=== PATIENT | male | born 1995 | race Caucasian/White ===

== ENCOUNTER 2024-12-01 20:01 | Emergency (ER) | payer MEDICAID, SELFPAY ==
--- OUTSIDE RECORDS SUMMARY | 2024-12-01 20:03 | XMS_ITS | Clinical Summary ---
Author Organization [place] Address [address] [place] [address] Care Team Providers Care Career Guidance Counselor Name Role Phone Leandra Montilla PA-C Primary Care Provid er Allergies No known active allergies Medications No known medications Active Problems Problem Noted Date Diagnosed Date ACP (advance care planning) 09/26/2015 Overview (09/26/2015): Advance Care Planning 09/26/2015: ACP Review of Chart / Resources Provided: Reviewed chart for advance care plan. Lilly Levin has no plan or code status on file. Discussed available resources and provided with information. Confirmed code status reflects current choices pending further ACP discussions. Confrimed/documented legally designated decision makers. Added by Dyana Santiago Other acne 12/20/2011 Allergic rhinitis 06/27/2009 Overview (05/19/2015): Problem list name updated by automated process. Provider to review Resolved Problems Problem Noted Date Diagnosed Date Resolved Date Health [facility] 09/26/2015 02/02/2024 Infectious mononucleosis 02/13/2012 Concussion syndrome 10/25/2010 12/20/19 12 Exercise-induced asthma 06/27/2009 08/09/2009 Overview (05/19/2015): Problem list name updated by automated process. Provider to review NO ACTIVE PROBLEMS 03/10/2008 9 Immunizations Name Administration Dates Next Due DTAP (<7y) 07/14/2000,03/06/1998,07/13/1996 HIB (PRP-T) 07/13/1996, 6,1995,06/13 HepB 03/01/1996,1995,1995 Hepatitis A (Vaqta/Havrix)(P eds 12m-18y) 12/20/2009 Hepatitis B, Peds (Engerix-B/Recombivax HB) 03/01/1996,1995,1995 Historic Hib Hib-titer 07/13/1996 Historical DTP/aP 1995,1995,06/13/19 95 MMR (MMRII) 07/14/2000, 8,07/13/1996,10/19 Meningococcal ACWY (Menactra ) 02/09/2014,12/20/2009 Meningococcal ACWY (Menveo ) 02/09/2014 OPV, trivalent, live 03/06/1998,10/19/18 96,1995,06/13 Pneumococcal (PCV 7) 07/14/2000 Poliovirus, inactivated (IPV) 07/14/2000 TDAP Vaccine (Adacel) 04/13/2008 TRIHIBIT (DTAP/HIB, <7y) 1995,1995,1 Td (Adult), Adsorbed 02/09/2017 Tdap (Adult) Unspecified Formulation 12/20/2009 Varicella (Varivax) 04/13/2008,03/06/1998,1995 Family History Medical History Relation Comments Hypertension Maternal Grandfather Breast Cancer Mother C.A.D. 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 Gender Identity Not on file Sexual Orientation Not on file Occupation Industry Job Start Date Job End Date student Not on file Not on file Not on file Last Filed Vital Signs Vital Sign Reading Time Taken Comments Blood Pressure 110/63 05/07/2022 11:02 AM CDT Pulse 64 05/07/2022 11:02 AM CDT Temperature 36.7 C (98 F) 05/07/2022 11:02 AM CDT Respiratory Rate 22 07/04/2020 3:35 PM 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 Oxygen Saturation 100% 05/07/2022 11:02 AM CDT Inhaled Oxygen Concentration - - Weight 61.2 kg (135 lb) 05/07/2022 11:02 AM CDT Height 179.1 cm (5' 10.5) 07/11/2020 11:[address] Body Mass Index 19.1 07/11/2020 11:23 AM 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 Plan of Treatment Health Maintenance Due Date Last Done Comments ADVANCE CARE PLANNING 1995 ANNUAL REVIEW OF HM ORDERS 1995 HIV SCREENING 2010 YEARLY PREVENTIVE VISIT 03/19/2011 03/19/2010, 03/10 HEPATITIS C SCREENING 2013 COVID-19 Vaccine ( season) 2024 INFLUENZA VACCINE (#1) 2024 07/11/2020 (Declin ed) PHQ-2 (once per calendar year) 2024 07/11/2020, 07/11/2020 DTAP/TDAP/TD IMMUNIZATION (9 - Td or Tdap) 02/09/2027 02/09/2017, 12/20/2009, 12/20/2009, Additional history exists ZOSTER IMMUNIZATION (1 of 2) 2045 HEPATITIS B IMMUNIZATION Completed 996, 03/01/1996, 1995, Additional history exists Pneumococcal Vaccine: Pediatrics (0 to 5 Years) and At-Risk Patients (6 to 49 Years) Aged Out 07/14/2000 No longer eligible based on patient's age to complete this topic MENINGITIS IMMUNIZATION Completed 02/10/20 14, 02/09/2014, 12/20/2009 HPV IMMUNIZATION Aged Out No longer e ligible based on patient's age to complete this topic Insurance [facility] [employer] Member Subscriber Plan / Payer (Ef fective 2019-Present) Name:LILLY LEVIN Relation to Subscriber:Child Name:Durga Green Date of :1961 (Home) (Work) Address: [place] [address] Payer ID:[id number] (NAIC) Type:Textic[employer] Address: [address] [facility] [employer] [facility] [employer] Member Subscriber Plan / Payer (Ef fective 2019-Present) Name:LILLY LEVIN Relation to Subscriber:Child Name:Durga Green Date of :1961 (Home) (Work) Address: [place] [address] Payer ID:[id number] (NAIC) Type:TexticO Address: [place] [phone] [facility] [employer] OTHER Care Teams Career Guidance Counselor Relationship Specialty Start Date End Date Leandra Montilla PA-C [address], [address] [place], [place] [id number] PCP - General Family Medicine 07/10/20
[2024-12-01 20:08] VITALS: BP 145/90; PULSE 87; RESP 18; TEMP 36.7; O2SAT 97; BMI 18.5
--- NOTE | 2024-12-01 20:20 | ED_ITS ---
HPI - Nausea/Vomiting/Diarrhea General Chief complaint: Nausea/Vomiting Stated complaint: vomiting Time Seen by Provider: 12/01/24 20:10 History of Present Illness HPI Narrative: This 29-year-old male comes in reporting persistent vomiting over the past hour to. He states that he has had episodes like this 3 or 4 times in the past. He does use marijuana daily. Related Data Home Medications ?Medication ?Instructions ?Recorded ?Confirmed No Known Home Medications 12/01/24 12/01/24 Allergies Allergy/AdvReac Type Severity Reaction Status Date / Time No Known Drug Allergies Allergy Verified 12/01/24 20:08 Review of Systems Status of ROS: Reports: 10 or more systems reviewed and unremarkable except as noted in History and below Narrative: Constitutional: No fevers, no weight gain or loss. Eyes: No discharge. No vision changes. HENT: No congestion, no sore throat, no ear pain. Cardiovascular: No chest pain, no palpitations. Respiratory: No shortness of breath, no wheezes, no cough. Gastrointestinal: No diarrhea. Persistent vomiting with associated abdominal pain. Genitourinary: No dysuria, no hematuria. Musculoskeletal: Normal range of motion. Skin: No rashes, no pruritis. Neurological: No dizziness, weakness, sensory change, speech change. Endo/Heme/Allergies: No bruising or bleeding. No polydipsia. Pysch: no suicidality, no anxiety, no insomnia. All other systems reviewed and are negative. PFSH PFSH Social History Smoking Status: Never smoker How often do you have a drink containing alcohol: monthly or less AUDIT-C Alcohol total score: 1 Non-prescribed substance use: marijuana (any form) service: No Exam Const: Vital Signs, click to edit/add: Vital Signs - 24 hr 12/01/24 20:08 Temperature 98.0 F Pulse Rate [Right Pulse Oximeter] 87 Respiratory Rate 18 Blood Pressure [Ri ght Upper Arm] 145/90 H Pulse Oximetry 97 Oxygen Delivery Me thod Room Air Course Vital Signs Vital signs: Initial Vital Signs Temperature 98.0 F 12/01/24 20:08 Temperature Source Temporal Artery Scan 12/01/24 20:08 Pulse Rate 87 12/01/24 20:08 Respiratory Rate 18 12/01/24 20:08 Blood Pressure 145/90 H 12/01/24 20:08 Blood Pressure Mean 108 H 12/01/24 20:08 Blood Pressure Position Sitting 12/01/24 20:08 Pulse Oximetry 97 12/01/24 20:08 Oxygen Delivery Method Room Air 12/01/24 20:08 Vital Signs Temperature 98.0 F 12/01/24 20:08 Pulse Rate 87 12/01/24 20:08 Respiratory Rate 18 12/01/24 20:08 Blood Pressure 145/90 H 12/01/24 20:08 Pulse Oximetry 97 12/01/24 20:08 Oxygen Delivery Method Room Air 12/01/24 20:08 Temperature 98.0 F 12/01/24 20:08 Pulse Rate 87 12/01/24 20:08 Respiratory Rate 18 12/01/24 20:08 Blood Pressure 145/90 H 12/01/24 20:08 Pulse Oximetry 97 12/01/24 20:08 Oxygen Delivery Method Room Air 12/01/24 20:08 Medications Administered Medications: Discontinued Medications Generic Name Dose Route Start Last Admin Trade Name Freq PRN Reason Stop Dose Admin Haloperidol Lactate 5 mg 12/01/24 20:19 12/01/24 20:46 Haloperidol 5 Mg/Ml Inj IV 12/01/24 20:20 5 mg ONCE ONE Administration Sodium Chloride 1,000 mls @ 1,000 mls/hr 12/01/24 20:30 12/01/24 20:45 0.9 % Sodium Chloride 1000 Ml IV 12/01/24 21:29 1,000 mls/hr .Q1H MARY Administration Lorazepam 0.5 mg 12/01/24 20:58 12/01/24 21:06 Lorazepam 2 Mg/Ml Inj IV 12/01/24 20:59 0.5 mg ONCE ONE Administration Ondansetron HCl 4 mg 12/01/24 20:19 12/01/24 20:46 Ondansetron 2 Mg/Ml Inj IVP 12/01/24 20:20 4 mg ONCE ONE Administration MDM - Nausea/Vomiting/Diarrhea MDM Narrative Medical decision making narrative: This patient comes in with persistent vomiting related to cannabis. He arrives with normal vital signs. An IV was established and he received a L of normal saline along with Haldol 5 mg and Zofran 4 mg. He has not had any further vomiting but felt rather anxious so I did administer a 1 time dose of Ativan 0.5 mg. The patient is doing much better and is okay to be discharged home. Discharge Plan Discharge Clinical Impression: Vomiting Patient Disposition: Home w/ Parent or Adult Condition: Improved Additional Instructions: Avoid marijuana. Increase diet as tolerated. Follow up with MD return if worsening. Prescriptions: No Action No Known Home Medications Follow Up/Referrals: Provider,Not a Local [Primary Care Provider] - Stand Alone Forms: [employer] Info Instructions
[2024-12-01] MEDS: 0.9 % SODIUM CHLORIDE 1000 ml 1,000 ML IV (20:45)
[2024-12-01] MEDS: HALOPERIDOL 5 MG/ML INJ IV (20:46)
[2024-12-01] MEDS: ONDANSETRON 2 MG/ML inj 4 MG IVP (20:46)
--- OUTSIDE RECORDS SUMMARY | 2024-12-01 20:57 | XMS_ITS | Clinical Summary ---
Author Organization [place] Address [address] [facility] 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 Gender Identity Not on file Sexual Orientation [...] CDT Respiratory Rate 22 07/04/2020 3:35 PM REED CLEANER Oxygen Saturation 100% 05/07/2022 11:02 AM CDT Inhaled Oxygen Concentration - - Weight 61.2 kg (135 lb) 05/07/2022 11:02 AM CDT Height 179.1 cm (5' 10.5) 07/11/2020 11:[address] Body Mass Index 19.1 07/11/2020 11:23 AM REED CLEANER Plan of Treatment Health Maintenance Due Date [...] patient's age to complete this topic Insurance [facility] [employer] Member Subscriber Plan / Payer (Ef fective 2019-Present) Name:LILLY LEVIN Relation to Subscriber:Child Name:Durga Green Date of :1961 (Home) (Work) Address: [place] [address] Payer ID:[id number] (NAIC) Type:[employer] Address: [address] [facility] [employer] [facility] [employer] Member Subscriber Plan / Payer (Ef fective 2019-Present) Name:LILLY LEVIN Relation to Subscriber:Child Name:Durga Green Date of :1961 (Home) (Work) Address: [place] [address] Payer ID:[id number] (NAIC) Type:[employer] Address: [place] [phone] [facility] [employer] OTHER Care Teams Pediatric Dental Hygienist Relationship Specialty Start Date End Date Leandra Montilla PA-C [address], [address] [place], [place] [address] PCP - General Family Medicine 07/10/20
[2024-12-01] MEDS: LORazepam 2 MG/ML inj 0.5 MG IV (21:06)
[2024-12-01 21:08] VITALS: PULSE 76; RESP 14; O2SAT 88
[2024-12-01 21:10] VITALS: RESP 14; O2SAT 98
[2024-12-01 21:43] VITALS: RESP 14; O2SAT 98
== END 2024-12-01 21:52 | disposition home or self-care (01) ==
PROVIDERS: Emergency Provider Emergency Medicine Emergency Medical Services
DX: R11.10 Vomiting, unspecified (principal); F12.90 Cannabis use, unspecified, uncomplicated
CPT/HCPCS: 96361; 96374; 96375; 99284; J1630; J2060; J2405; J7030